=== PATIENT | male | born 1990 | race African-American/Black ===

== ENCOUNTER 2017-08-05 21:46 | Emergency (ER) | payer OTHER ==
[2017-08-05] MEDS ORDERED: LIDOCAINE 1% MDV 20ML VIAL As Ordered (23:56)
[2017-08-06] MEDS: LIDOCAINE 2% MDV 20 ML VIAL SC
[2017-08-06] MEDS: cefTRIAXone SOD 1 GM VIAL (J0696) IM (00:11)
[2017-08-06] MEDS: AUGMENTIN 875 MG TAB PO (00:12)
[2017-08-06] MEDS: NORCO 5/325MG TABLET (BULK FOR ED) PO (01:34)
== END 2017-08-06 01:42 | disposition home or self-care (01) ==
LOC: M ED 21:46
DX: S61.411A Laceration without foreign body of right hand, initial encounter (principal); W54.0XXA Bitten by dog, initial encounter; Y92.098 Other place in other non-institutional residence as the place of occurrence of the external cause
CPT/HCPCS: J0696